=== PATIENT | male | born 1960 ===

== ENCOUNTER 2021-10-06 05:30 | Outpatient (CLI) | payer OTHER ==
[~2021-10-06] VITALS: Ht 175 cm; Wt 106.8 kg
[2021-10-06] MEDS ORDERED: SERT100T PO (09:15)
[2021-10-06] MEDS ORDERED: PANT40TA2 PO (09:15)
== END 2021-10-06 09:22 | disposition home or self-care (01) ==
LOC: PREOP 05:30
PROVIDERS: ATTEND Surgery
DX: Z01.818 Encounter for other preprocedural examination (principal)

== ENCOUNTER 2021-10-19 08:33 | Day surgery (SDC) | payer OTHER ==
[2021-10-19] VITALS (10 sets, daily range): BP systolic 117–146; BP diastolic 73–97
[~2021-10-19] VITALS: Ht 175 cm; Wt 106.8 kg
[~2021-10-19 08:33] MED LIST: PANT40TA2 PO; SERT100T PO
[2021-10-19] MEDS ORDERED: ceFAZolin 2 GM IV Premixed 50 ML IV ONE (08:45)
[2021-10-19] MEDS: LACTATED RINGERS 1,000 ML IV PRN ×2 (09:15→11:16)
[2021-10-19] MEDS ORDERED: HYDROcodone/APAP 5 MG/325 MG (LORTAB) TAB PO ONE (09:30)
[2021-10-19] MEDS ORDERED: ONDANSETRON 4 MG/2 ML (SDV) Z0FRAN IVP PRN ×2 (09:30→12:00)
[2021-10-19] MEDS ORDERED: ACETAMINOPHEN 325 MG TABLET PO PRN (09:30)
[2021-10-19] MEDS ORDERED: morphine INJ 10 MG/ML 1ML (SYR OR VIAL) IVP PRN (09:30)
--- NOTE | 2021-10-19 09:30 | Progress Note-Pre Operative ---
Pre-Operative Progress Note H&P Reviewed The H&P was reviewed, patient examined and no changes noted. Date Seen by Provider: October 19, 2021 Time Seen by Provider: 09:25 Date H&P Reviewed: October 19, 2021 Time H&P Reviewed: 09:20 Pre-Operative Diagnosis: Ventral abdominal incisonal hernia JODEE OSWALD APRN October 19, 2021 09:30
[2021-10-19] MEDS ORDERED: HYDR-3817 PO (09:32)
--- NOTE | 2021-10-19 09:32 | Discharge Inst-Surgical ---
D/C Lap Instructions-KIDO Reconcile Patient Problems Problems Reviewed?: Yes New, Converted, or Re-Newed RX: RX on Chart Follow Up Appt in 2 weeks Activity as tolerated No driving for 24 hours No driving while on pain medications Incentive Spirometry use every 2 hours while awake Regular Diet Symptoms to Report: Fever over 101 degree F, Nausea/Vomiting Infection Signs and Symptoms to report: Increased redness, Foul odor of wound, Increased drainage Bathing instructions: May shower Operative Area Clean/Dry; Keep incision clean/dry If any problems/questions: Contact your physician or go to Emergency Room JODEE OSWALD APRN October 19, 2021 09:32
[2021-10-19] MEDS ORDERED: LIDOCAINE PF 2% 5 ML (XYLOCAINE) VIAL ONE (10:09)
[2021-10-19] MEDS ORDERED: proPOfol 200 MG/20 ML (DIPRIVAN) VIAL IV ONE (10:09)
[2021-10-19] MEDS ORDERED: MIDAZOLAM 2 MG/2 ML (VERSED) VIAL ONE (10:09)
[2021-10-19] MEDS ORDERED: fentaNYL INJ 100 MCG/2 ML AMP ONE (10:09)
[2021-10-19] MEDS ORDERED: ONDANSETRON 4 MG/2 ML (SDV) Z0FRAN ONE (10:09)
[2021-10-19] MEDS ORDERED: GLYCOPYRROLATE 0.2 MG/ML (ROBINUL) 2 ML VIAL ONE (10:09)
[2021-10-19] MEDS ORDERED: NEOSTIGMINE 3 MG/3 ML VIAL ONE (10:09)
[2021-10-19] MEDS ORDERED: ROCURONIUM 50 MG/5 ML (ZEMURON) VIAL IV ONE (10:10)
[2021-10-19] MEDS ORDERED: LIDOCAINE/EPI 2% 1:100,00 (XYLOCAINE) 20 ML VIAL ONE ×2 (10:14→10:24)
[2021-10-19] MEDS ORDERED: SEVOFLURANE (ULTANE) 15 ML INHAL SOLN ONE ×2 (10:58→12:05)
--- NOTE | 2021-10-19 11:34 | Progress Note-Post Operative ---
Post-Operative Progess Note Surgeon (s)/Change Control Manager (s) Surgeon TERRI HERRON MD Change Control Manager: none Pre-Operative Diagnosis Ventral abdominal incisonal hernia Post-Operative Diagnosis same Procedure & Operative Findings Date of Procedure 10/19/21 Procedure Performed/Findings open ventral abdominal incisional hernia repair with mesh. Anesthesia Type get Estimated Blood Loss Estimated blood loss (mL): minimal Specimens/Packing Specimens Removed none TERRI HERRON MD October 19, 2021 11:34
[2021-10-19] MEDS ORDERED: SUGAMMADEX 500 MG/5 ML VIAL (BRIDION) IV ONE (11:51)
[2021-10-19] MEDS ORDERED: morphine INJ 10 MG/ML 1ML (SYR OR VIAL) IVP ONE (12:00)
[2021-10-19] MEDS ORDERED: HYDROmorphone 2 MG/ML VIAL (DILAUDID) IV ONE (12:00)
[2021-10-19] MEDS ORDERED: HYDROcodone/APAP 5 MG/325 MG (LORTAB) TAB ONE (12:53)
--- NOTE | 2021-10-19 13:14 | Anesthesia-General Post-Op ---
General Patient Condition Mental Status/LOC: Same as Preop Cardiovascular: Satisfactory Nausea/Vomiting: Absent Respiratory: Satisfactory Pain: Controlled Complications: Absent Post Op Complications Complications None Follow Up Care/Instructions Patient Instructions None needed. Anesthesia/Patient Condition Patient Condition Patient is doing well, no complaints, stable vital signs, no apparent adverse anesthesia problems. TRACI ROQUE DO October 19, 2021 13:14
--- NOTE | 2021-10-19 14:26 | OPERATIVE REPORT ---
DATE OF SERVICE: 10/19/2021 ATTENDING PRIMARY CARE PHYSICIAN: Abdulkadir Hartmann DO PREOPERATIVE DIAGNOSIS: Reducible ventral abdominal incisional hernia. POSTOPERATIVE DIAGNOSIS: Reducible ventral abdominal incisional hernia. PROCEDURE: Repair reducible ventral abdominal incisional hernia with mesh. SURGEON: Terri Herron MD CREW LEADER GLUING: Noé Beck APRN ANESTHESIA: General endotracheal. ESTIMATED BLOOD LOSS: Minimal. FINDINGS: Same as postoperative diagnoses. DISPOSITION: The patient tolerated the procedure well. INDICATIONS: The patient is a 61-year-old male who was referred over to us for a recurrent hernia in the epigastric region. He reports that he first noticed this approximately 10 years ago and this grew in size and then he underwent a laparoscopic gastric sleeve resection and simultaneously underwent a primary repair of the hernia. He reports that this surgery was done in 2014. He then reports a recurrence of the hernia 3-4 years ago. He was examined and found to have a ventral abdominal incisional hernia, which was reducible. He is otherwise tolerating a regular diet and having normal bowel movements. DESCRIPTION OF PROCEDURE: The patient was brought to the operating room, laid supine on the table. After adequate IV pain and sedative medications and general endotracheal intubation, the abdomen was prepped and draped in standard surgical fashion. A 0.5% Marcaine with epinephrine was used to anesthetize overlying the hernia sac. Using the same previous incision site, a skin incision was made using a 15 blade. Subcutaneous tissue was dissected down. The hernia sac was identified and completely dissected out using electrocautery as well as blunt dissection to the fascial base. The hernia sac was then excised under direct visualization using Metzenbaum scissors as well as electrocautery. His only omentum within the hernia sac, which was reduced back into the peritoneal cavity. The defect was small, approximately 1.5 cm in size and a 6.4 round coated polypropylene mesh was placed in the defect and then sutured in a transfascial manner concentrically around the mesh using interrupted 0 Prolene sutures. Good hemostasis was observed. Subcutaneous tissue was then reapproximated using 3-0 Vicryl interrupted sutures. Skin was closed using 4-0 Monocryl running subcuticular suture. Wound was then cleaned and covered with Dermabond. The area was then covered with tonsil sponges followed by 4 x 4 gauze followed by a large Op-Site and an abdominal binder. The patient tolerated the procedure well. We will start IV normal pain medication as well as a clear liquid diet. Once he is tolerating clears, he has good pain control with oral pain medications, ambulating well, we will discharge him home where he will be instructed to do no heavy lifting or exertion, especially for the first 2 weeks; however, for a total of 6 weeks from the surgery date. Job ID: [id number] DocumentID: [id number] Dictated Date: 10/19/2021 11:46:57 Dynamite Shooter Date: 10/19/2021 14:25:49 Dictated By: TERRI HERRON MD [facility]
--- NOTE | 2021-11-03 13:07 | HISTORY AND PHYSICAL ---
DATE OF SERVICE: HISTORY OF PRESENT ILLNESS: The patient is a 61-year-old male referred over to us for recurrent hernia in the epigastric region. He first noticed the bulge 10 years ago and had grown larger in size and then underwent a laparoscopic gastric sleeve resection and simultaneous repair of the hernia under primary technique. This was done in 2014. He reports that approximately 3 to 4 later, he noticed recurrence of the hernia. He states that over time that this recurrent hernia has grown larger in size and become painful. He is otherwise eating well and having normal bowel movements. PAST MEDICAL HISTORY: Gastroesophageal reflux disease, depression. PAST SURGICAL HISTORY: Laparoscopic gastric sleeve resection and ventral abdominal hernia repair by primary technique. ALLERGIES: No known drug allergies. MEDICATIONS: Sertraline 50 mg daily, Protonix 40 mg daily. SOCIAL HISTORY: Negative smoke, negative alcohol. FAMILY HISTORY: Noncontributory. VITAL SIGNS: Stable. Blood pressure 152/84. Current weight 241 pounds at 5 feet 8 inches. REVIEW OF SYSTEMS: Well-nourished male in no acute distress. He is not experiencing any shortness of breath or difficulty breathing. No chest pain, palpitations, diaphoresis. No nausea, vomiting. No diarrhea or constipation, no red blood per rectum, no dark tarry stools. No fever, chills, no recent inadvertent weight loss. All other review of systems negative. PHYSICAL EXAMINATION: CHEST: Clear. Good breath sounds bilaterally. HEART: Regular, no murmurs. EXTREMITIES: No lower extremity edema, negative Homans sign. HEENT: No scleral icterus. NECK: No cervical lymphadenopathy. ABDOMEN: Soft, nondistended. There is an epigastric hernia, which is easily palpable and reducible; however, tender to palpation. SKIN: Warm, dry. ASSESSMENT AND PLAN: A 61-year-old male with recurrent ventral abdominal incisional hernia. We will proceed with repair of the recurrent hernia with standard underlay mesh technique and also instructed to do no heavy lifting or exertion for the next six weeks. Job ID: [id number] DocumentID: [id number] Dictated Date: 11/03/2021 12:49:25 Lead Mechanic Date: 11/03/2021 13:06:35 Dictated By: TERRI HERRON MD [facility]
== END 2021-10-19 13:45 | disposition home or self-care (01) ==
LOC: SDC 08:33
PROVIDERS: ATTEND Surgery
DX: K43.2 Incisional hernia without obstruction or gangrene (principal); K21.9 Gastro-esophageal reflux disease without esophagitis; Z98.84 Bariatric surgery status
CPT/HCPCS: 49565; 49568; 87081; C1781